=== PATIENT | male | born 1970 | race Caucasian/White ===

== ENCOUNTER 2018-05-08 14:02 | Observation (INO) ==
--- NOTE | 2018-05-08 16:01 | XR ---
EXAM DATE: 05/08/2018 3:47 PM EST AGE/SEX: 47 years / Male INDICATIONS: . Short of breath, chest pressure. CLINICAL DATA: This is the patient's initial encounter. Patient reports that signs and symptoms have been present for 1 day and indicates a pain score of 0/10. MEDICAL/SURGICAL HISTORY: None. None. COMPARISON: No prior exams available for comparison. FINDINGS: AP and lateral views of the chest demonstrate the lungs to be symmetrically aerated without evidence of mass, infiltrate or effusion. The cardiomediastinal contours are unremarkable. Osseous structure s are intact. CONCLUSION: No acute intrathoracic disease. Electronically signed by: Joe Pratt MD 05/08/2018 4:00 PM EST
--- NOTE | 2018-05-08 19:13 | ECG ---
Date Performed: 05/08/2018 Time Performed: 14:17:16 PTAGE: 47 years EKG: Sinus rhythm NORMAL ECG NO PREVIOUS TRACING DOCTOR: Domenico Sheth Interpretating Date/Time 05/08/2018 19:11:18
--- NOTE | 2018-05-08 19:42 | ED ---
HPI General Chief Complaint: Chest Pain Stated Complaint: Chest Pressure/SOB Complaint Time Seen by Provider: 05/08/18 19:29 History of Present Illness HPI narrative: This patient complains of chest pain. Started early this morning. He feels a pressure and heaviness in his left and central sternal region. He denies personal history of cardiac disease. He has hypertension and family history of cardiac disease. No alleviating factors. Symptoms are not exertional. They have been there for 10 straight hours. No exacerbating factors. Related Data Allergies Allergy/AdvReac Type Severity Reaction Status Date / Time No Known Allergies Allergy Verified 05/08/18 14:12 Review of Systems ROS: all other systems reviewed are negative [facility] Medical History Medical History Patient denies medical problems (Acute) Surgical History Surgical History No history of previous surgery (Acute) Social History Social History Substance History: No History of Abuse Second Hand Smoke Exposure: No Smoking Status: Former smoker How Often Do You Have a Drink Containing Alcohol: Never Recent Travel in [facility] within the Last 8 Weeks: No Recent Out of Country Travel within the Last 8 Weeks: No Exam Narrative Exam Narrative: GENERAL: Well-nourished, well-developed patient with chest heaviness . SKIN: Focused skin assessment reveals no rash and nodules. Skin is Warm and dry. HEAD: Atraumatic. Normocephalic. EYES: Pupils equal and round. No scleral icterus. No injection or drainage. ENT: No nasal bleeding or discharge. Mucous membranes pink and moist. NECK: Trachea midline. No JVD. CARDIOVASCULAR: Regular rate and rhythm. No murmur appreciated. RESPIRATORY: No accessory muscle use. Clear to auscultation. Breath sounds equal bilaterally. GASTROINTESTINAL: Abdomen soft, non-tender, nondistended. Hepatic and splenic margins not palpable. MUSCULOSKELETAL: No obvious deformities. No clubbing. No cyanosis. No edema. NEUROLOGICAL: Awake and alert. No obvious cranial nerve deficits. Motor grossly within normal limits. Normal speech. PSYCHIATRIC: Appropriate mood and affect; insight and judgment normal. Course Initial Documented Vital Signs Temperature 98.7 F 05/08/18 14:09 Pulse Rate 85 05/08/18 14:09 Respiratory Rate 20 05/08/18 14:09 Blood Pressure 160/100 H 05/08/18 14:09 Pulse Oximetry 99 05/08/18 14:09 Last Documented Vital Signs Temperature 98.7 F 05/08/18 14:09 Pulse Rate 82 05/08/18 19:32 Respiratory Rate 18 05/08/18 19:32 Blood Pressure 185/88 H 05/08/18 19:32 Pulse Oximetry 99 05/08/18 19:50 Medical Decision Making MDM Narrative Medical decision making narrative: 47-year-old male with 10 hours of chest pressure and heaviness. He has multiple risk factors for cardiac disease. He initially presented to an urgent care and he had aspirin therapy. His chest x- ray and EKG are reasonably normal. Labs have been sent. Cardiac enzymes and general labs are normal. Patient will be a 23-hour observation in the chest pain center in order to rule out cardiac cause of his symptoms. Medical Screen Exam Complete: Yes Emergency Medical Condition: Yes Differential Diagnosis Differential Diagnosis: Differential diagnosis includes VA, angina, pericarditis , pleurisy, GERD, anxiety. Medical Records Medical records reviewed: Yes I reviewed the patient's medical records. Lab Data Lab results reviewed: Yes I reviewed the patient's lab results. Result diagrams: 05/08/18 19:50 05/08/18 19:50 Lab Results 05/08/18 05/08/18 Range/Units 19:50 19:50 WBC 7.7 (4.0-11.0) th/mm3 RBC 5.04 (4.50-5.90) mil/mm3 Hgb 15.5 (13.0-17.0) gm/dL Hct 47.0 (39.0-51.0) % MCV 93.2 (80.0-100.0) fL MCH 30.8 (27.0-34.0) pg MCHC 33.1 (32.0-36.0) % RDW 13.7 (11.6-17.2) % Plt Count 237 (150-450) th/mm3 MPV 8.4 (7.0-11.0) fL Neut % (Auto) 68.7 (16.0-70.0) % Lymph % (Auto) 19.1 (9.0-44.0) % [place] % (Auto) 10.9 H (0.0-8.0) % Eos % (Auto) 0.6 (0.0-4.0) % Baso % (Auto) 0.7 (0.0-2.0) % Neut # (Auto) 5.3 (1.8-7.7) th/mm3 Lymph # (Auto) 1.5 (1.0-4.8) th/mm3 [place] # (Auto) 0.8 (0.0-0.9) th/mm3 Eos # (Auto) 0.0 (0.0-0.4) th/mm3 Baso # (Auto) 0.1 (0.0-0.2) th/mm3 WBC Differential . Differential Comment Auto diff final Sodium 137 (136-145) meq/L Potassium 4.0 (3.5-5.1) meq/L Chloride 101 (98-107) meq/L Carbon Dioxide 25.7 (21.0-32.0) meq/L Anion Gap 10 (5-15) meq/L BUN 14 (7-18) mg/dL Creatinine 0.80 (0.60-1.30) mg/dL Estimated GFR Greater than 89 (>89) mL/min Random Glucose 71 L (74-106) mg/dL Calcium 9.2 (8.5-10.1) mg/dL Total Creatine Kinase 202 (39-308) U/L CK-MB (CK-2) 1.8 (0.5-3.6) ng/mL Troponin I Less than 0.02 L (0.02-0.05) ng/mL Imaging Data Attestation: I personally reviewed and interpreted this imaging study as follows : Radiologist's impression: Chest X-Ray 05/08/18 15:20 CONCLUSION: No acute intrathoracic disease. ECG Data EKG Prior to Arrival: No Attestation: I personally reviewed and interpreted this ECG as follows: Prior ECG tracings: not available for review Interpretation: EKG shows a sinus rhythm. There are no ST elevations. His rate interval and axis are normal Discharge Plan Discharge Disposition Patient Disposition: ED Admit(ED Internal Use Only) Discharge Order Discharge Orders: ED Use Only Admit Order (Routine); Ordered 05/08/18 Ordered By: Jose Meier Discharge Details Diagnosis: Chest pain in adult Physicians Team ED Provider: Jose Meier Primary Care Provider: UNKNOWN, Discharge Instructions Patient Printed Instructions: Chest Pain (ED) Discharge Interventions Interventions: Vital Signs Last Done: 05/08/18 19:32 Status ED Status: With Doctor
[2018-05-08 20:38] LABS: Baso # (Auto) 0.1 th/mm3 (0.0-0.2); Baso % (Auto) 0.7 % (0.0-2.0); Eos % (Auto) 0.6 % (0.0-4.0); Hemoglobin 15.5 gm/dL (13.0-17.0); Lymph # (Auto) 1.5 th/mm3 (1.0-4.8); Lymph % (Auto) 19.1 % (9.0-44.0); Mean Corpuscular HGB Conc 33.1 % (32.0-36.0); Mean Corpuscular Hemoglobin 30.8 pg (27.0-34.0); Mean Corpuscular Volume 93.2 fL (80.0-100.0); Mean Platelet Volume 8.4 fL (7.0-11.0); Mono # (Auto) 0.8 th/mm3 (0.0-0.9); Mono % (Auto) 10.9 % (0.0-8.0); Neut # (Auto) 5.3 th/mm3 (1.8-7.7); Neut % (Auto) 68.7 % (16.0-70.0); Platelet Count 237 th/mm3 (150-450); Red Blood Count 5.04 mil/mm3 (4.50-5.90); Red Cell Distribution Width 13.7 % (11.6-17.2); White Blood Count 7.7 th/mm3 (4.0-11.0)
[2018-05-08 20:57] LABS: Anion Gap 10 meq/L (5-15); Blood Urea Nitrogen 14 mg/dL (7-18); Calcium 9.2 mg/dL (8.5-10.1); Carbon Dioxide 25.7 meq/L (21.0-32.0); Chloride 101 meq/L (98-107); Glomerular Filtration Rate Greater Than 89 mL/min (>89); Glucose,Random 71 mg/dL (74-106); Sodium 137 meq/L (136-145)
[2018-05-08 21:02] LABS: Creatine Kinase 202 U/L (39-308)
[2018-05-08 21:14] LABS: Creatine Kinase MB 1.8 ng/mL (0.5-3.6)
[2018-05-09 00:10] LABS: Creatine Kinase 177 U/L (39-308)
[2018-05-09] MEDS ORDERED: Morphine Inj 4 MG/ML Vial IV.PUSH SCH (01:17)
[2018-05-09] MEDS ORDERED: Sod Chloride 0.9% Inj 1,000 ML IV.SIG SCH (01:30)
[2018-05-09 02:57] LABS: Creatine Kinase 179 U/L (39-308)
[2018-05-09] MEDS ORDERED: Lisinopril 10 MG Tablet PO STA (08:44)
[2018-05-09] MEDS ORDERED: Aspirin 325 MG Tablet PO SCH (09:00)
--- NOTE | 2018-05-09 09:47 | P.HPCA ---
History of Present Illness Primary Care Physician: UNKNOWN Chief Complaint: Chest pain History of Present Illness: This is a 47-year-old male with history of hypertension hyperlipidemia presents to ED with a complaint of a left-sided chest heaviness that began about 9:00 yesterday morning. He was sitting at home when it began. Was rated as an 8 out of 10 at its worst. It lasted about 16 hours. Found nothing to worsen or improve it at home. Was given medication in the emerge part which helped a little bit but still took a little longer for it to go away. He was short of breath. Denies nausea or diaphoresis. States he has had a cardiac workup somewhat recently. States he had a stress test that included pictures with a treadmill nuclear January or February this year in [place] and that he was told that it was okay and was not told that he needed to do anything differently afterwards. Currently has no chest discomfort. There is family history of CAD. His mother had bypass in her 60s and at age 73 of an [place]. He is a non-smoker. He has on average 6 beers on weekends. Denies illicit drug use. Admits to being under a lot of stress. States he and his girlfriend just broke up 2 days ago after being involved in a 1 year relationship. - Diagnosis (1) Chest pain (2) Hypertension (3) Hyperlipidemia Review of Systems General: Patient denies fevers, chills, and recent travel. HEENT: Patient denies headache, sore throat, difficulty swallowing. Cardiovascular: Has the chest discomfort as mentioned above. Denies sensation of heart beating rapidly or irregularly. No syncope. Denies diaphoresis. Respiratory: He was short of breath. Denies inspirational chest discomfort. Denies coughing wheezing or hemoptysis. GI: Patient denies nausea, vomiting, diarrhea, abdominal pain, bloody stools. Musculoskeletal: Patient denies joint pain or edema. Denies calf pain or edema. Neurovascular: Patient denies numbness, tingling, weakness in extremities. Denies headache. Endocrine: Denies polyuria and polydipsia. Hematologic: Denies easy bruising. Skin: Denies rash or itching. PMFSH - History History Provided By: Patient - Medical History Medical History: Medical History (Last Updated 05/08/18 @ 14:11 by Sandra Barnes) Patient denies medical problems - Surgical History Surgical History: Surgical History (Last Updated 05/08/18 @ 14:11 by Sandra Barnes) No history of previous surgery - Tobacco History Second Hand Smoke Exposure: Yes Tobacco Use In Past 30 Days: Yes Smoking Status: Never smoker Tobacco Type: Smokeless Tobacco - Alcohol History How Often Do You Have a Drink Containing Alcohol: 2 to 4 times a month - Substance Use History Substance History: No History of Abuse - Travel History Recent Travel in the [place] Within the Last 8 Weeks: No Recent Travel Out of the Country Within the Last 8 Weeks: No - Immunization History Tetanus Immunization: Unsure Hx Influenza Vaccine This Season: No Medications and Allergies Active Medications: Active Medications Aspirin (Aspirin) 325 mg PO DAILY [facility] Last Admin: 05/09/18 08:28 Dose: 325 mg Sodium Chloride (Ns Inj) 1,000 mls @ 100 mls/hr IV.SIG .Q10H [facility] Stop: 05/09/18 11:29 Last Admin: 05/09/18 01:30 Dose: 100 mls/hr Sodium Chloride (Ns Flush) 2 ml IV.FLUSH BID [facility] Last Admin: 05/09/18 08:28 Dose: 2 ml Sodium Chloride (Ns Flush) 2 ml IV.FLUSH PRN PRN PRN Reason: FLUSH AFTER USING IV ACCESS Allergies Allergy/AdvReac Type Severity Reaction Status Date / Time No Known Allergies Allergy Verified 05/08/18 14:12 Home Medications Medication Instructions Recorded Confirmed Type atorvastatin 20 mg PO DAILY 05/09/18 05/09/18 History lisinopril-hydrochlorothiazide 20 mg DAILY 05/09/18 05/09/18 History Exam Vital signs: Vital Signs 05/08/18 14:09 05/08/18 19:32 05/08/18 19:50 Temperature 98.7 F Pulse Rate 85 82 Respiratory Rate 20 18 Blood Pressure 160/100 H 185/88 H Pulse Oximetry 99 98 98 05/08/18 20:00 05/08/18 21:44 05/08/18 23:23 Temperature Pulse Rate 71 Respiratory Rate 16 Blood Pressure 143/86 H Pulse Oximetry 98 98 98 05/09/18 00:00 05/09/18 04:00 05/09/18 08:00 Temperature 98.4 F 97.8 F 98.7 F Pulse Rate 71 76 74 Respiratory Rate 18 18 16 Blood Pressure 157/96 H 146/90 H 165/99 H Pulse Oximetry 97 97 98 05/09/18 08:20 Temperature Pulse Rate 82 Respiratory Rate Blood Pressure Pulse Oximetry Intake & Output 05/08/18 05/09/18 05/09/18 18:59 06:59 18:59 Weight 90.718 kg Other: Date of Last Bowel Movement 05/07/18 Narrative: GENERAL: This is a well-nourished, well-developed patient, in no apparent distress. Patient speaks in clear complete sentences. Patient is pleasant. HEENT: Head is atraumatic and normocephalic. Neck is supple without lymphadenopathy and trachea is midline. No JVD or carotid bruits. CARDIOVASCULAR: Regular rate and rhythm without murmurs, gallops, or rubs. RESPIRATORY: Clear to auscultation. Breath sounds equal bilaterally. No wheezes , rales, or rhonchi. Chest wall is nontender. No use of accessory muscles. GASTROINTESTINAL: Abdomen is nontender, nondistended. Abdomen soft. No obvious pulsatile mass or bruit. No CVA tenderness. Strong femoral pulses bilaterally. Normal bowel sounds in all quadrants. MUSCULOSKELETAL: Patient is moving upper and lower extremities freely. No calf tenderness or edema, no Homans sign. Strong pulses in upper and lower extremities. NEUROLOGICAL: Patient is alert and oriented. Cranial nerves 2-12 are grossly intact. No focal deficits and speech is clear. SKIN: No rash and turgor is normal. Results 05/08/18 19:50 05/08/18 19:50 Cardiac Enzymes 05/08/18 05/08/18 05/09/18 Range/Units 19:50 23:43 02:22 CK-MB (CK-2) 1.8 (0.5-3.6) ng/mL Troponin I Less than 0.02 L Less than 0.02 L Less than 0.02 L (0.02-0.05) ng/mL CBC 05/08/18 Range/Units 19:50 WBC 7.7 (4.0-11.0) th/mm3 RBC 5.04 (4.50-5.90) mil/mm3 Hgb 15.5 (13.0-17.0) gm/dL Hct 47.0 (39.0-51.0) % Plt Count 237 (150-450) th/mm3 Neut # (Auto) 5.3 (1.8-7.7) th/mm3 Lymph # (Auto) 1.5 (1.0-4.8) th/mm3 [place] # (Auto) 0.8 (0.0-0.9) th/mm3 Eos # (Auto) 0.0 (0.0-0.4) th/mm3 Baso # (Auto) 0.1 (0.0-0.2) th/mm3 Comprehensive Metabolic Panel 05/08/18 Range/Units 19:50 Sodium 137 (136-145) meq/L Potassium 4.0 (3.5-5.1) meq/L Chloride 101 (98-107) meq/L Carbon Dioxide 25.7 (21.0-32.0) meq/L BUN 14 (7-18) mg/dL Creatinine 0.80 (0.60-1.30) mg/dL Calcium 9.2 (8.5-10.1) mg/dL Intake and Output 05/08/18 05/09/18 05/09/18 22:59 06:59 14:59 Other: Date of Last Bowel Movement 05/07/18 - Imaging and Cardiology Imaging: Impressions Chest X-Ray 05/08/18 15:20 CONCLUSION: No acute intrathoracic disease. EKG interpretations - EKG EKG shows: sinus rhythm (EKGs are sinus rhythm/sinus bradycardia without significant ST segment depressions or elevations.) Caprini VTE Risk Assessment Caprini VTE Risk Assessment: No/Low Risk (score <= 1) Caprini Risk Assessment Model: Point Value = 1 Point Value = 2 Point Value = 3 Point Value = 5 Age 41-60 Minor surgery BMI > 25 kg/m2 Swollen legs Varicose veins or History of unexplained or recurrent spontaneous Oral contraceptives or hormone replacement Sepsis (< 1 month) Serious lung disease, including pneumonia (< 1 month) Abnormal pulmonary function Acute myocardial infarction Congestive heart failure (< 1 month) History of inflammatory bowel disease Medical patient at bed rest Age 61-74 Arthroscopic surgery Major open surgery (> 45 min) Laparoscopic surgery (> 45 min) Malignancy Confined to bed (> 72 hours) Immobilizing plaster cast Central venous access Age >= 75 History of VTE Family history of VTE Factor V Leiden Prothrombin [id number] Lupus anticoagulant Anticardiolipin antibodies Elevated serum homocysteine Heparin-induced thrombocytopenia Other congenital or acquired thrombophilia Stroke (< 1 month) Elective arthroplasty Hip, pelvis, or leg fracture Acute spinal cord injury (< 1 month) Prophylaxis Regimen: Total Risk Factor Score Risk Level Prophylaxis Regimen 0-1 Low Early ambulation 2 Moderate Order ONE of the following: *Sequential Compression Device (SCD) *Heparin 5000 units SQ BID 3-4 Higher Order ONE of the following medications: *Heparin 5000 units SQ TID *Enoxaparin/Lovenox 40 mg SQ daily (WT < 150 kg, CrCl > 30 mL/min) *Enoxaparin/Lovenox 30 mg SQ daily (WT < 150 kg, CrCl > 10-29 mL/min) *Enoxaparin/Lovenox 30 mg SQ BID (WT < 150 kg, CrCl > 30 mL/min) AND/OR *Sequential Compression Device (SCD) 5 or more Highest Order ONE of the following medications: *Heparin 5000 units SQ TID (Preferred with Epidurals) *Enoxaparin/Lovenox 40 mg SQ daily (WT < 150 kg, CrCl > 30 mL/min) *Enoxaparin/Lovenox 30 mg SQ daily (WT < 150 kg, CrCl > 10-29 mL/min) *Enoxaparin/Lovenox 30 mg SQ BID (WT < 150 kg, CrCl > 30 mL/min) AND *Sequential Compression Device (SCD) Assessment and Plan - Assessment (1) Chest pain Code(s): R07.9 - Chest pain, unspecified Status: Acute (2) Hypertension Code(s): I10 - Essential (primary) hypertension Status: Acute (3) Hyperlipidemia Code(s): E78.5 - Hyperlipidemia, unspecified Status: Acute - Plan * Chest pain: Patient has had serial cardiac enzymes and EKGs for ruling out purposes. He was seen by Dr. Gomez of cardiology and the chest pain center. He will undergo a Gagandeep protocol ETT and would be discharged home if stress test is nonischemic with instructions to follow-up with PCP. Return to ED for interval issues. * Hypertension: He should resume his medication. * Hyperlipidemia: He should resume his medication and follow-up with the physician for further management. Patient is stable at this time. He is agreeable to this plan. H&P: Quality - VTE Deep Vein Thrombosis/Pulmonary Embolism Present on Admission: No
--- NOTE | 2018-05-09 17:06 | TR ---
Date Performed: 05/09/2018 Time Performed: 09:52:51 DOCTOR: Fadia Gomez DRUG LIST: CLINICAL HISTORY: REASON FOR TEST: REASON FOR ENDING: OBSERVATION: CONCLUSION: PIA PROTOCOL. NO CP. TEST STOPPED AFTER REACHING GOAL HR SECONDARY TO SOB AND LEG FATIGUE.Maximum BT=979 % Max HR Achieved=91.0% Maximum LQ=628/104 Total Exercise Time=9:15 No ischem ia COMMENTS: no ischemia
--- NOTE | 2018-05-09 17:07 | ECG ---
Date Performed: 05/09/2018 Time Performed: 02:12:43 PTAGE: 47 years EKG: SINUS BRADYCARDIA WITH OCCASIONAL SUPRAVENTRICULAR PREMATURE COMPLEXES POSSIBLE INFERIOR MY OCARDIAL INFARCTION BORDERLINE ECG Since PREVIOUS TRACING , no significant change noted DOCTOR: Fadia Gomez Interpretating Date/Time 05/09/2018 17:06:03
--- NOTE | 2018-05-09 17:08 | ECG ---
Date Performed: 05/08/2018 Time Performed: 23:52:50 PTAGE: 47 years EKG: Sinus rhythm NORMAL ECG Since PREVIOUS TRACING , no significant change noted PREVIOUS TRACIN05/08/2018 14.17 DOCTOR: Fadia Gomez Interpretating Date/Time 05/09/2018 17:06:54
== END 2018-05-09 12:55 | disposition home or self-care (01) ==
LOC: NEPD 14:02 → NEDA 14:02 → NEPGCP 23:55 → NEDA 05-09
PROVIDERS: ADMIT Internal Medicine Cardiovascular Disease; ATTEND Internal Medicine Cardiovascular Disease
DX: I10 Essential (primary) hypertension; R94.31 Abnormal electrocardiogram [ECG] [EKG]; R07.89 Other chest pain; Z82.49 Family history of ischemic heart disease and other diseases of the circulatory system; E78.5 Hyperlipidemia, unspecified